=== PATIENT | male | born 1990 | race Caucasian/White ===

== ENCOUNTER 2025-01-24 08:48 | Observation (INO) ==
--- NOTE | 2025-01-24 09:23 | Emergency Department Note ---
Impression & Plan Acute right lumbar radiculopathy, Herniated lumbar intervertebral disc ED Provider Note NAME: VAISHALI SORIA AGE: 34 SEX: M : 1990 ARRIVES VIA: Walk-In INFORMANT: Patient, ED PROVIDER(S): Shaw Prince DO CHIEF COMPLAINT: Back pain HPI: The patient is a 34-year-old male who presented to the emergency department for an evaluation of low back pain. The patient has been seen in our facility recently for similar complaints. At that time he had radiographic studies but no obvious cause could be found. He was started on a course of steroids. He had follow-up set up with outpatient providers. The patient had worsening symptoms and call these providers. He was unable to be seen and they told him they could not see him until he had an MRI. The patient is requesting an MRI at this time. The patient denies having any saddle anesthesia. He complains of continued pain going down the right leg. He said no fever. ROS: See above HPI for pertinent positives & negatives. A total of 10 systems reviewed and were otherwise negative. PAST MEDICAL HISTORY: See Below PAST SURGICAL HISTORY: See Below FAMILY HISTORY: See Below SOCIAL HISTORY: See Below HOME MEDICATIONS: See Below ALLERGIES: See Below VITALS: See Below PHYSICAL EXAMINATION: GENERAL: The patient is awake and alert. He appears uncomfortable and anxious. EYES: The conjunctivae are clear. The pupils are round and reactive. EARS, NOSE, MOUTH AND THROAT: The nose is without any evidence of any deformity. NECK: The neck is nontender and supple. RESPIRATORY: Normal respiratory effort is noted there is no evidence of wheezing rhonchi or rales CARDIOVASCULAR: Regular rate and rhythm noted there no murmurs rubs or gallops normal S1 normal S2. GASTROINTESTINAL: The abdomen is soft. Abdomen is nontender. BACK: Lower lumbar tenderness was noted to palpation. Range of motion appears limited secondary to pain but there is no step-off. There is tenderness to palpation over the right sciatic notch. Straight leg raise is positive with the right leg. MUSCULOSKELETAL/EXTREMITIES: There is no evidence of gross deformity full range of motion is noted in the hips and shoulders. SKIN: There is no obvious evidence of any rash. There are no petechiae, pallor or cyanosis noted. NEUROLOGIC: Patient is awake alert and oriented x3 strength is symmetric patellar reflexes are 2+ bilaterally. Great toe raise is symmetric. Achilles tendon reflexes are 1+ bilaterally. MEDICAL DECISION MAKING: The patient is a 34-year-old male who presented to the emergency department for an evaluation of low back pain. The patient had radicular symptoms to his right leg. The patient's physical exam was very reassuring but given the degree of pain as well as his second trip back to emergency department I did feel the patient would be a good candidate for an MRI. I discussed patient's MRI with him. He was treated with pain medication as well as steroids in the emergency department. He was feeling much better on subsequent reevaluation but given his findings I discussed his condition with the on-call orthopedic spinal specialist. They are familiar with the patient and were able to review the patient's MRI. Given the patient's degree of pain though I felt the patient may be a better candidate for inpatient management so I discussed his condition with the on-call [facility] hospitalist as well. Triage Nursing notes reviewed. Prior medical records reviewed Vital Signs: reviewed and remarkable for no significant abnormalities Differential diagnosis: Musculoskeletal, disc herniation, fracture, metastatic disease, cord compression, discitis, sciatica, cauda equina, infection, aortic disease, renal colic, gastrointestinal, as well as other pathologies. ER treatment provided: See below Diagnostics interpreted by me: ECG: none Cardiac Monitoring: An order was placed for continuous cardiac monitoring. The monitor shows a rate of 77 bpm with sinus rhythm. Laboratory studies: As stated above and show below. Imaging studies: See below. Radiographic imaging was reviewed by myself Consultation(s): I discussed this case with Dr. Malave who is on-call for orthopedic spine. I discussed this case with Maritza who is on-call for the [facility] hospitalist group. Past Med/Surg History Problem List (Updated 01/24/25 @ 15:16 by Shaw Prince DO) Herniated lumbar intervertebral disc (Acute) Acute right lumbar radiculopathy (Acute) Herniation of intervertebral disc between L5 and S1 Acute lumbar radiculopathy (Acute) Low back pain radiating to right lower extremity History of lumbar laminectomy for spinal cord decompression L5-S1 Abdominal pain Melena Environmental and seasonal allergies S/P arthroscopy of right shoulder Encounter for pre-operative examination Labral tear of shoulder Medical History History of COVID-19 (2021) no hosp; resolved Hx of gastric ulcer ~2013 Blood in stool Environmental and seasonal allergies Nausea after anesthesia Surgical History History of arthroscopy of right shoulder repair labrum and bicep x2 S/P endoscopy Hx of colonoscopy Hx of wisdom tooth extraction History of ankle surgery lt. Family History Grandmother (Paternal) Breast cancer Grandfather (Maternal) History of open heart surgery Grandfather (Paternal) Kidney failure Mother Diabetes Father No problems noted. 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 [employer] How many Children do You have: 2 Feels Safe at Home: Yes Childhood Exposure to Second-Hand Smoke: No Diet: regular Dental Care, Regularly: Yes Physical Activity Frequency: 3-4 Times per Week Seatbelt Use: always Sunscreen Use: Yes Assistive Devices: None Allergies Allergies Allergy/AdvReac Type Severity Reaction Status Date / Time amoxicillin [From Augmentin] Allergy Mild Rash Verified 01/02/25 13:04 clavulanic acid Allergy Mild Rash Verified 01/02/25 13:04 [From Augmentin] gabapentin AdvReac Mild gave him Unverified 01/24/25 12:10 fever, body aches, and headache Home Meds Home Medications Medication Instructions Recorded Confirmed multivitamin 1 tab PO HS 03/17/22 01/24/25 cetirizine 10 mg tablet (Zyrtec) 10 mg PO HS 05/13/24 01/24/25 fluticasone propionate 50 1 spray intranasal HS PRN Other 05/13/24 01/24/25 mcg/actuation nasal spray,suspension dicyclomine 20 mg tablet 20 mg PO TID abdominal 01/24/25 01/24/25 craming/diarrhea Previous Rx's Medication Instructions Recorded oxycodone 5 mg tablet 5 mg PO Q6H PRN pain #15 tabs 01/22/25 prednisone 20 mg tablet 20 mg PO BID 7 days #14 tabs 01/22/25 Results & Data (ED) Vital Signs Vital Signs - 24 hr 01/24/25 08:54 01/24/25 09:22 01/24/25 09:45 Temperature 36.5 C Temperature Source Temporal Artery Scan Pulse Rate 76 74 Pulse Rate [Apical] 69 Pulse Rhythm Regular Pulse Rhythm [Apical] Pulse Strength [Apical] Respiratory Rate 20 21 19 Respiratory Effort / Characteristics Non-Labored Spontaneous Respiratory Depth Normal Respiratory Pattern Blood Pressure 161/103 H Blood Pressure [Right Arm] 191/102 H Blood Pressure Mean 122 Blood Pressure Mean [Right Arm] 131 Blood Pressure Position [Right Arm] Pulse Oximetry 98 96 96 Oxygen Delivery Method Room Air Room Air Sepsis Recent Fever Within 48 Hours No Sepsis New/Unexplained Change in Mental Status N/A Sepsis Action Taken by Nursing No Action Required 01/24/25 09:47 01/24/25 12:05 01/24/25 14:00 Temperature Temperature Source Pulse Rate 78 Pulse Rate [Apical] 71 84 Pulse Rhythm Pulse Rhythm [Apical] Regular Pulse Strength [Apical] Normal Respiratory Rate 15 17 Respiratory Effort / Characteristics Non-Labored Spontaneous Respiratory Depth Normal Respiratory Pattern Regular Blood Pressure Blood Pressure [Right Arm] 148/100 H 153/92 H Blood Pressure Mean Blood Pressure Mean [Right Arm] 116 112 Blood Pressure Position [Right Arm] Sitting Pulse Oximetry 96 95 Oxygen Delivery Method Room Air Room Air Sepsis Recent Fever Within 48 Hours Sepsis New/Unexplained Change in Mental Status Sepsis Action Taken by Nursing 01/24/25 14:44 Temperature Temperature Source Pulse Rate 77 Pulse Rate [Apical] Pulse Rhythm Pulse Rhythm [Apical] Pulse Strength [Apical] Respiratory Rate Respiratory Effort / Characteristics Respiratory Depth Respiratory Pattern Blood Pressure Blood Pressure [Right Arm] Blood Pressure Mean Blood Pressure Mean [Right Arm] Blood Pressure Position [Right Arm] Pulse Oximetry Oxygen Delivery Method Sepsis Recent Fever Within 48 Hours Sepsis New/Unexplained Change in Mental Status Sepsis Action Taken by Custodial Medications Current Medication List: was personally reviewed by me Laboratory Data Attestation: I reviewed the patient's lab results. 01/24/25 09:46 01/24/25 09:46 Lab Results 01/24/25 01/24/25 Range/Units 09:46 10:19 WBC 11.97 H (4.8-10.8) K/ul RBC 5.15 (4.70-6.10) M/uL Hgb 15.3 (14.0-18.0) g/dl Hct 46.1 (42.0-52.0) % MCV 89.5 (80.0-100.0) fL MCH 29.7 (25.0-34.0) pg MCHC 33.2 (32.0-36.0) g/dL RDW Std Deviation 39.5 (36.4-46.3) fL RDW Coeff of Blanka 12.0 (11.5-14.5) % Plt Count 295 (130-400) K/uL MPV 9.6 (9.4-12.4) fL Immature Gran % (Auto) 1.6 % Neut % (Auto) 56.4 % Lymph % (Auto) 33.2 % Worth % (Auto) 7.5 % Eos % (Auto) 0.8 % Baso % (Auto) 0.5 % Neut # (Auto) 6.75 H (1.40-6.50) K/uL Lymph # (Auto) 3.97 H (1.20-3.40) K/uL Worth # (Auto) 0.90 H (0.11-0.59) K/uL Eos # (Auto) 0.10 (0.00-0.50) K/uL Baso # (Auto) 0.06 (0.00-0.20) K/uL Immature Gran # (Auto) 0.19 (0.01-0.20) K/uL Sodium 140 (136-145) mmol/L Potassium 3.9 (3.5-5.1) mmol/L Chloride 105 (98-107) mmol/L Carbon Dioxide 30 (21-32) mmol/L Anion Gap 5 (3-11) BUN 17 (6-23) mg/dl Creatinine 1.08 (0.6-1.4) mg/dl Est Cr Clr Drug Dosing 148.0 ml/min eGFR 92.93 BUN/Creatinine Ratio 15.7 (10-20) Glucose 86 (70-99(Fasting)) mg/dl Calcium 9.4 (8.6-10.3) mg/dl Total Bilirubin 0.6 (0.2-1.0) mg/dl AST 13 (13-39) U/L ALT 29 (7-52) U/L Alkaline Phosphatase 54 (34-104) U/L Total Protein 7.4 (6.0-8.3) gm/dl Albumin 4.5 (3.4-5.0) gm/dl Globulin 2.9 (2.5-4.0) gm/dl Albumin/Globulin Ratio 1.6 (0.9-2) Urine Color Yellow Urine Appearance Cloudy A (Clear) Urine pH 7.0 (4.5-7.5) Ur Specific [place] 1.028 (1.000-1.030) Urine Protein Trace H (Negative) Urine Glucose (UA) Negative (Negative) Urine Ketones Trace H (Negative) Urine Blood Negative (Negative) Urine Nitrite Negative (Negative) Urine Bilirubin Negative (Negative) Urine Urobilinogen Negative (Negative) Ur Leukocyte Esterase Negative (Negative) Urine WBC (Auto) 0-5 (0-5) /hpf Urine RBC (Auto) 3-5 H (0-2) /hpf U Hyaline Cast (Auto) 0-2 (0-2) /lpf U Epithel Cells (Auto) 0-2 (0-2) /hpf Urine Bacteria (Auto) None Seen (None Seen) Urine Comment Administered Medications Morphine Sulfate (Morphine Sulfate 4 Mg/Ml 1 Ml Carp\Vial) 4 mg IV Q15M PRN PRN Reason: Pain Stop: 02/07/25 09:12 Last Admin: 01/24/25 13:16 Dose: 4 mg Documented By: Admin: 01/24/25 09:46 Dose: 4 mg Documented By: DAYANNA Discontinued Medications Dexamethasone Sodium Phosphate (DexamethasonePf 10 Mg/Ml Vial) 10 mg IV NOW ONE Stop: 01/24/25 09:14 Last Admin: 01/24/25 09:46 Dose: 10 mg Documented By: DAYANNA Ketorolac Tromethamine (Ketorolac Tromethamine 15 Mg/Ml Vial) 10 mg IV ONE STA Stop: 01/24/25 09:14 Last Admin: 01/24/25 09:46 Dose: 10 mg Documented By: DAYANNA Ondansetron HCl (Ondansetron Inj 2 Mg/Ml 2 Ml Vial) 4 mg IV NOW STA Stop: 01/24/25 09:14 Last Admin: 01/24/25 09:46 Dose: 4 mg Documented By: DAYANNA Ondansetron HCl (Ondansetron Inj 2 Mg/Ml 2 Ml Vial) 4 mg IV NOW STA Stop: 01/24/25 13:04 Last Admin: 01/24/25 13:17 Dose: 4 mg Documented By: DAYANNA Imaging Data Attestation: I personally reviewed and interpreted this imaging study as follows: My Impression: MRI of the lumbar spine was obtained. My interpretation is herniated disc at the L5-S1, final report below. Radiologist's Impression: Lumbar Spine MRI 01/24/25 09:13 MR lumbar spine wo con CLINICAL HISTORY: 34 years-old Male with right sided radicular SS. Acute low back pain with right lower extremity radicular symptoms COMPARISON: Radiographs dated 01/22/2025 TECHNIQUE: Multiplanar, multi sequence MRI of the lumbar spine was performed without intravenous contrast. FINDINGS: The lumbar alignment is normal. The vertebral body heights are normal. There is no T1 fracture line or marrow replacement process. The conus terminates at L1. The visualized spinal cord and cauda equina are normal. There is no paraspinal edema, mass, or prevertebral fluid collection. The intra-abdominal structures are grossly unremarkable. There is mild multilevel spondylitic spurring. Mild multilevel intervertebral disc space narrowing. Small annular disc bulging noted within the lower thoracic spine. T12-L1: No central canal or neural foraminal stenosis. L1-L2: Small posterior annular disc bulge, eccentric to the right neural foramen. No central canal or neural foraminal stenosis. L2-L3: No central canal or neural foraminal stenosis. L3-L4: No central canal or neural foraminal stenosis. L4-L5: 9 x 3 mm central disc protrusion, image 22 series 5. No central canal or neural foraminal stenosis. L5-S1: Mild intervertebral disc space narrowing and spondylotic spurring with small circumferential annular disc bulge. There is a posterior annular fissure with a large disc extrusion on image 28 series 5 measuring 2.5 x 0.7 cm with 5 mm caudal migration, image 9 series 2. This involves the central/right paracentral space, and right neural foramen. This abuts and posteriorly displaces the right S1 nerve root causing severe right lateral recess narrowing. Central canal and left neural foramen are patent. [id number] right neural foraminal narrowing. IMPRESSION: 1. Posterior annular fissure with large disc extrusion at L5-S1 abuts and posteriorly displaces the right S1 nerve root causing severe right lateral recess and [id number] right-sided neural foraminal narrowing at this level. 2. No additional significant central canal or neural foraminal stenosis. 3. No acute fracture or bone marrow edema. ACT 112: Negative or not required by law. The above report was generated using voice recognition software. It may contain grammatical, syntax or spelling errors. Electronically signed by: Fidel Aguilar M.D. 01/24/2025 11:47 AM Discharge Plan Visit Data Chief Complaint: Back Injury/Pain Stated Complaint: BACK PAIN ED Provider: Shaw Prince Discharge Problem: Acute right lumbar radiculopathy, Herniated lumbar intervertebral disc Patient Disposition: Being Evaluated by Hospitalist Condition: Fair Forms Stand Alone Forms: [facility] Prescriptions Prescriptions: No Action multivitamin Tablet 1 tab PO HS prednisone 20 mg tablet 20 mg PO BID 7 Days Qty: 14 0RF oxycodone 5 mg tablet 5 mg PO Q6H PRN (Reason: pain) Qty: 15 0RF dicyclomine 20 mg tablet 20 mg PO TID cetirizine [Zyrtec] 10 mg Tablet 10 mg PO HS fluticasone propionate 50 mcg/actuation [place],Suspension 1 spray INTRANASAL HS PRN (Reason: Other) Rx Instructions: administer into each nostril Referrals Referrals: Rosemarie Vinson CRNP [Primary Care Provider] -
[2025-01-24] MEDS: ONDANSETRON INJ 2 MG/ML 2 ML VIAL IV STA ×2 (09:46→13:17)
[2025-01-24] MEDS: KETOROLAC TROMETHAMINE 15 MG/ML VIAL IV STA (09:46)
[2025-01-24] MEDS: dexAMETHasone**PF** 10 MG/ML VIAL IV ONE (09:46)
[2025-01-24] MEDS: MoRPHine SULFATE 4 MG/ML 1 ML CARP\\VIAL IV PRN (09:46)
[2025-01-24 09:55] LABS: Hematocrit (blood only) 46.1 % (42.0-52.0); Hemoglobin 15.3 g/dl (14.0-18.0); Immature Granulocytes # (auto) 0.19 K/uL (0.01-0.20); Immature Granulocytes % (auto) 1.6 %; Mean Corpuscular Hemoglobin 29.7 pg (25.0-34.0); Mean Corpuscular Volume 89.5 fL (80.0-100.0); Platelet Count 295 K/uL (130-400); RDW Standard Deviation 39.5 fL (36.4-46.3); Red Blood Count 5.15 M/uL (4.70-6.10); White Blood Count 11.97 K/ul (4.8-10.8)
[2025-01-24 10:11] LABS: Alanine Aminotransferase 29.0 U/L (7-52); Albumin Globulin Ratio 1.6 (0.9-2); Alkaline Phosphatase 54.0 U/L (34-104); Anion Gap 5.0 (3-11); Bilirubin,Total 0.6 mg/dl (0.2-1.0); Blood Urea Nitrogen 17.0 mg/dl (6-23); Calcium 9.4 mg/dl (8.6-10.3); Carbon Dioxide 30.0 mmol/L (21-32); Chloride 105.0 mmol/L (98-107); Creatinine Clr Calc Pharmacy 148.0 ml/min; Globulin 2.9 gm/dl (2.5-4.0); Glucose 86.0 mg/dl (70-99(Fasting)); Potassium 3.9 mmol/L (3.5-5.1); Sodium 140.0 mmol/L (136-145); Total Protein 7.4 gm/dl (6.0-8.3)
[2025-01-24 10:40] LABS: Appearance Urine Cloudy (Clear); Bacteria Urine Automated None Seen (None Seen); Cast Urine Automated 0-2 /lpf (0-2); Epithelial Cell Urine Auto 0-2 /hpf (0-2); Glucose Urine UA Negative (Negative); WBC Urine Automated 0-5 /hpf (0-5)
--- NOTE | 2025-01-24 11:48 | Magnetic Resonance Report ---
MR lumbar spine wo con CLINICAL HISTORY: 34 years-old Male with right sided radicular SS. Acute low back pain with right lo wer extremity radicular symptoms COMPARISON: Radiographs dated 01/22/2025 TECHNIQUE: Multiplanar, multi sequence MRI of the lumbar spine was performed without intravenous cont rast. FINDINGS: The lumbar alignment is normal. The vertebral body heights are normal. There is no T1 fracture line or marrow replacement process. The conus terminates at L1. The visualized spinal cord and cauda eq uina are normal. There is no paraspinal edema, mass, or prevertebral fluid collection. The intra-ab dominal structures are grossly unremarkable. There is mild multilevel spondylitic spurring. Mild mult ilevel intervertebral disc space narrowing. Small annular disc bulging noted within the lower thoraci c spine. T12-L1: No central canal or neural foraminal stenosis. L1-L2: Small posterior annular disc bulge, eccentric to the right neural foramen. No central canal o r neural foraminal stenosis. L2-L3: No central canal or neural foraminal stenosis. L3-L4: No central canal or neural foraminal stenosis. L4-L5: 9 x 3 mm central disc protrusion, image 22 series 5. No central canal or neural foraminal carline nosis. L5-S1: Mild intervertebral disc space narrowing and spondylotic spurring with small circumferential annular disc bulge. There is a posterior annular fissure with a large disc extrusion on image 28 seri es 5 measuring 2.5 x 0.7 cm with 5 mm caudal migration, image 9 series 2. This involves the central/r ight paracentral space, and right neural foramen. This abuts and posteriorly displaces the right S1 n erve root causing severe right lateral recess narrowing. Central canal and left neural foramen are pa tent. [id number] right neural foraminal narrowing. IMPRESSION: 1. Posterior annular fissure with large disc extrusion at L5-S1 abuts and posteriorly displaces the r ight S1 nerve root causing severe right lateral recess and [id number] right-sided neural forami nal narrowing at this level. 2. No additional significant central canal or neural foraminal stenosis. 3. No acute fracture or bone marrow edema. ACT 112: Negative or not required by law. The above report was generated using voice recognition software. It may contain grammatical, syntax o r spelling errors. Electronically signed by: Fidel Aguilar M.D. 01/24/2025 11:47 AM
--- NOTE | 2025-01-24 13:28 | History & Physical Report ---
Date of Service January 24, 2025 Assessment & Plan (1) Acute lumbar radiculopathy: (2) Herniation of intervertebral disc between L5 and S1: Plan This is a 34 year old gentleman with past medical history of abdominal pain who presented to the ED on 01/24/2025 secondary to low back pain. While in the ED, he had a lumbar spine MRI that did reveal a large L5-S1 disc extrusion that posteriorly displaces the right S1 nerve root causing severe right lateral recess & mild-moderate right sided neural foraminal narrowing. He did have a recent lumbar spine XR that was negative. Urinalysis negative for infection. CBC w/ mild leukocytosis of 11.97 which is likely secondary to recent steroid use. BMP w/ stable renal function & electrolytes. In the ED he did have 10mg IV dexamethasone, 4mg IV morphine x2, IV Zofran, & IV Toradol. #Acute lumbar radiculopathy Lumbar spine MRI: posterior annular fissure w/ large disc extrusion @ L5-S1 abuts & posteriorly displaces right S1 nerve root causing severe right lateral recess & mild-moderate right sided neural foraminal narrowing. no additional significant central canal/neural foraminal stenosis; no acute fx or BM edema. Lumbar spine XR: negative. CBC w/ mild leukocytosis of 11.97 which is likely secondary to recent steroid use. No infectious symptoms BMP stable Dexamethasone 6mg IV daily starting 01/25. Pain regimen: Tylenol 1000mg PO scheduled; Toradol 1st line prn; Morphine 2nd line prn; Flexeril TID prn for muscle spasms. Ortho spine consulted - appreciate recommendations Pain management consulted - appreciate recommendations PT/OT consulted - appreciate recommendations. #Abdominal pain -Bentyl TID #Allergies - Cetirizine, Flonase prn. Code: full DVT prophylaxis: encourage ambulation as able, SCD's Case discussed w/ Dr. Kelly at time of admission. History of Present Illness Primary Care Provider: YVONNE Mei This is a 34 year old gentleman with past medical history of abdominal pain who presented to the ED on 01/24/2025 secondary to low back pain. Mo was seen and examined with his mother at bedside. He reports he has been having ongoing low back pain for about 2 months now. States that he was given a 2 week steroid taper in which the first week his symptoms improved. As the steroid dose started to decrease, his pain returned. He was trialed on gabapentin but reports he had adverse effects to this & it was not effective for his pain. He states that within the last few days to a week his pain has gotten worse. He denies any saddle anesthesia, or loss of bowel/bladder incontinence. He states he did have trouble urinating overnight which was not normal for him. He denied any dysuria or increased frequency. He does report some numbness/tingling in his right ankle/foot region. States that this became more prominent yesterday evening. He states his back pain radiates down his right leg. He denies any CP, SOB, abdominal pain, nausea or vomiting. He does report that 11 years ago he had a spinal injection due to similar symptoms & this was very effective for him. States he would be agreeable to another injection if needed & he would like to avoid surgery as much as possible. While in the ED, he had a lumbar spine MRI that did reveal a large L5-S1 disc extrusion that posteriorly displaces the right S1 nerve root causing severe right lateral recess & mild-moderate right sided neural foraminal narrowing. He did have a recent lumbar spine XR that was negative. Urinalysis negative for infection. CBC w/ mild leukocytosis of 11.97 which is likely secondary to recent steroid use. BMP w/ stable renal function & electrolytes. Allergies Allergy/AdvReac Type Severity Reaction Status Date / Time amoxicillin [From Augmentin] Allergy Mild Rash Verified 01/02/25 13:04 clavulanic acid Allergy Mild Rash Verified 01/02/25 13:04 [From Augmentin] gabapentin AdvReac Mild gave him Unverified 01/24/25 12:10 fever, body aches, and headache Home Medications Medication Instructions Recorded Confirmed Type multivitamin 1 tab PO HS 03/17/22 01/24/25 History cetirizine 10 mg tablet (Zyrtec) 10 mg PO HS 05/13/24 01/24/25 History fluticasone propionate 50 1 spray intranasal HS PRN Other 05/13/24 01/24/25 History mcg/actuation nasal spray,suspension oxycodone 5 mg tablet 5 mg PO Q6H PRN pain #15 tabs 01/22/25 01/24/25 Rx prednisone 20 mg tablet 20 mg PO BID 7 days #14 tabs 01/22/25 01/24/25 Rx dicyclomine 20 mg tablet 20 mg PO TID abdominal 01/24/25 01/24/25 History craming/diarrhea Past Med/Surg History Problem List (Updated 01/24/25 @ 13:55 by Jeri Lancaster PA-C) Herniation of intervertebral disc between L5 and S1 Acute lumbar radiculopathy (Acute) Low back pain radiating to right lower extremity History of lumbar laminectomy for spinal cord decompression L5-S1 Abdominal pain Melena Environmental and seasonal allergies S/P arthroscopy of right shoulder Encounter for pre-operative examination Labral tear of shoulder Medical History History of COVID-19 (2021) no hosp; resolved Hx of gastric ulcer ~2013 Blood in stool Environmental and seasonal allergies Nausea after anesthesia Surgical History History of arthroscopy of right shoulder repair labrum and bicep x2 S/P endoscopy Hx of colonoscopy Hx of wisdom tooth extraction History of ankle surgery lt. Family History Grandmother (Paternal) Breast cancer Grandfather (Maternal) History of open heart surgery Grandfather (Paternal) Kidney failure Mother Diabetes Father No problems noted. 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 [employer] How many Children do You have: 2 Feels Safe at Home: Yes Childhood Exposure to Second-Hand Smoke: No Diet: regular Dental Care, Regularly: Yes Physical Activity Frequency: 3-4 Times per Week Seatbelt Use: always Sunscreen Use: Yes Assistive Devices: None Physical Exam Constitutional: WD/WN, vitals as above Eyes: PERRL, conjunctivae normal, anicteric sclerae Respiratory: normal respiratory effort, lungs clear to auscultation Cardiovascular: RRR, no murmur, no edema Gastrointestinal (Abdomen): normal bowel sounds, soft, nontender, no hepatosplenomegaly Musculoskeletal: no cyanosis or clubbing, extremities motor strength 5/5 pain w/ lifting right leg but able to. sensation intact b/l LE Neurologic: PERRL, EOMI, accommodation nl, no face palsy, no dysarthria Psychiatric: A+Ox3, euthymic affect Results & Data Results & Data Vital Signs (Past 12 Hours) Vital Signs Temp Pulse Pulse Resp BP BP Pulse Ox 01/24/25 12:05 71 15 148/100 H 96 01/24/25 09:47 78 01/24/25 09:45 74 19 96 01/24/25 09:22 69 21 191/102 H 96 01/24/25 08:54 36.5 C 76 20 161/103 H 98 O2 Del Method 01/24/25 12:05 Room Air 01/24/25 09:47 01/24/25 09:45 Room Air 01/24/25 09:22 01/24/25 08:54 Room Air Supervising Physician Co-Signing Physician Notes The patient was seen by me. The chart was reviewed. Case discussed with ANAI Krause. Agree with assessment and plan PG Care Time/CCT Total # of Minutes Spent Total Time Spent with Patient: Total time spent is greater than 50% in coordination of care (as documented) at patient's floor/unit and/or counseling patient: Coding Level of Care Code 01454 INT INP/OBS CARE 2/55MIN Diagnoses Acute lumbar radiculopathy M54.16 Herniation of intervertebral disc between L5 and S1 M51.27
[2025-01-24] MEDS ORDERED: CYCLOBENZAPRINE HCL 10 MG TAB PO PRN (15:56)
[2025-01-24] MEDS ORDERED: ONDANSETRON INJ 2 MG/ML 2 ML VIAL IV PRN (15:56)
[2025-01-24] MEDS ORDERED: MoRPHine SULFATE 2 MG/ML CARP IV PRN (15:56)
[2025-01-24] MEDS ORDERED: FLUTICASONE PROPIONATE NA SPR 16 GM BTL NAE PRN (15:56)
[2025-01-24] MEDS: ACETAMINOPHEN 500 MG TAB PO SCH (16:13)
[2025-01-24] MEDS: DICYCLOMINE HCL 20 MG TAB PO SCH (17:21)
[2025-01-24] MEDS: KETOROLAC TROMETHAMINE 15 MG/ML VIAL IV PRN (18:03)
[2025-01-24] MEDS: REMOVE LIDODERM PATCH SCH (20:31)
[2025-01-24] MEDS: MULTIVITAMIN TAB PO SCH (20:32)
[2025-01-24] MEDS: CETIRIZINE HCL 10 MG TABLET PO SCH (20:32)
[2025-01-24 23:11] VITALS: RESP 18; TEMP 97.9
[2025-01-25 06:30] LABS: Hematocrit (blood only) 44.4 % (42.0-52.0); Hemoglobin 14.7 g/dl (14.0-18.0); Mean Corpuscular Hemoglobin 29.9 pg (25.0-34.0); Mean Corpuscular Volume 90.2 fL (80.0-100.0); Platelet Count 268 K/uL (130-400); RDW Standard Deviation 38.6 fL (36.4-46.3); Red Blood Count 4.92 M/uL (4.70-6.10); White Blood Count 11.99 K/ul (4.8-10.8)
[2025-01-25 06:54] LABS: Anion Gap 6.0 (3-11); Blood Urea Nitrogen 23.0 mg/dl (6-23); Calcium 9.3 mg/dl (8.6-10.3); Carbon Dioxide 28.0 mmol/L (21-32); Chloride 104.0 mmol/L (98-107); Creatinine Clr Calc Pharmacy 148.0 ml/min; Glucose 90.0 mg/dl (70-99(Fasting)); Potassium 4.5 mmol/L (3.5-5.1); Sodium 138.0 mmol/L (136-145)
[2025-01-25 07:14] VITALS: BP 143/84; PULSE 60; O2SAT 99
[2025-01-25] MEDS: LIDOCAINE 5% 1 PATCH TD PRN (08:00)
[2025-01-25] MEDS: dexAMETHasone 6 MG in SYRINGE 0 ML IV SCH (08:02)
--- NOTE | 2025-01-25 09:10 | Pain Management Consultation ---
Date of Consultation January 25, 2025 Assessment & Plan (1) Acute lumbar radiculopathy: (2) Herniation of intervertebral disc between L5 and S1: (3) Low back pain radiating to right lower extremity: Plan 1. Recommend L5-S1 interlaminar epidural steroid injection. Risk versus benefits discussed with patient. He wishes to proceed. He will schedule soon as possible as an outpatient. 2. Continue with Lidoderm patch and ice as tolerated 3. Will plan on performing injection in the outpatient clinic pending insurance approval. Patient is aware that he may be discharged with follow-up in the clinic for injection. 4. Follow-up in the outpatient clinic per protocol and as needed after injection. Case discussed with Dr. Hurtado History of Present Illness Reason for Consultation: Low back pain with radiculopathy Attending Physician: Kuldip Schofield History of Present Illness Attending: Dr. Hurtado Mr. Soria is a 34-year-old male who presents with back pain that started approximately 3 months ago. It progressed approximately 3 weeks ago and patient was seen by orthospine who prescribed a steroid taper. Patient had some improvement with that but pain returned. He presented the emergency department on Thursday with acute pain and difficulty with ambulation. He reports he has constant pain in the lumbosacral area right worse than left with pain and tingling down into the right foot in an L5-S1 distribution pattern. Occasional radiation into the left lateral thigh. Patient reports that he has tried muscle relaxants and oxycodone with minimal improvement in his pain. He currently is getting IV dexamethasone and continues to have difficulty with pain. Patient reports he has similar incident 12 years ago and had "a shot in the back" and had sustained relief until this time. He reports the pain is aggravated by standing, walking, prolonged sitting. Pain is alleviated with rest and lying supine. Patient was placed on gabapentin and had excessive daytime drowsiness and brain fog after 2 doses and medication was discontinued. Patient has not tried pregabalin (Lyrica), duloxetine (Cymbalta). Patient is able to ambulate about his room to use the restroom but reports pain. He denies any foot drop, stumbling, falls. Patient reports pain at worst 7-8/10 and at best 5/10. Patient has seen orthospine and is established with them as an outpatient Lumbar spine MRI 01/24/2025 Lumbar spine x-ray 01/22/2025 Physical therapy and Occupational Therapy consults have been placed but patient has not been seen yet Previous intervention: Physical therapy, muscle relaxants, opiates, steroid taper orally, IV steroids, NSAIDs, Tylenol, repositioning, rest Patient denies any bowel or bladder incontinence. No saddle anesthesia. He has no unusual bleeding or bruising. He has no history of malignancy. He is unaware of any blood dyscrasias. He is not on anticoagulants or antiplatelet agents. Patient has no other constitutional complaints. Allergies Allergy/AdvReac Type Severity Reaction Status Date / Time amoxicillin [From Augmentin] Allergy Mild Rash Verified 01/02/25 13:04 clavulanic acid Allergy Mild Rash Verified 01/02/25 13:04 [From Augmentin] gabapentin AdvReac Mild gave him Unverified 01/24/25 12:10 fever, body aches, and headache Home Medications Medication Instructions Recorded Confirmed Type multivitamin 1 tab PO HS 03/17/22 01/24/25 History cetirizine 10 mg tablet (Zyrtec) 10 mg PO HS 05/13/24 01/24/25 History fluticasone propionate 50 1 spray intranasal HS PRN Other 05/13/24 01/24/25 History mcg/actuation nasal spray,suspension oxycodone 5 mg tablet 5 mg PO Q6H PRN pain #15 tabs 01/22/25 01/24/25 Rx prednisone 20 mg tablet 20 mg PO BID 7 days #14 tabs 01/22/25 01/24/25 Rx dicyclomine 20 mg tablet 20 mg PO TID abdominal 01/24/25 01/24/25 History craming/diarrhea Pain History Previous Imaging and Results Labs: 01/25/25 06:03 01/25/25 06:03 Imaging: Lumbar Spine MRI 01/24/25 09:13 MR lumbar spine wo con CLINICAL HISTORY: 34 years-old Male with right sided radicular SS. Acute low back pain with right lower extremity radicular symptoms COMPARISON: Radiographs dated 01/22/2025 TECHNIQUE: Multiplanar, multi sequence MRI of the lumbar spine was performed without intravenous contrast. FINDINGS: The lumbar alignment is normal. The vertebral body heights are normal. There is no T1 fracture line or marrow replacement process. The conus terminates at L1. The visualized spinal cord and cauda equina are normal. There is no paraspinal edema, mass, or prevertebral fluid collection. The intra-abdominal structures are grossly unremarkable. There is mild multilevel spondylitic spurring. Mild multilevel intervertebral disc space narrowing. Small annular disc bulging noted within the lower thoracic spine. T12-L1: No central canal or neural foraminal stenosis. L1-L2: Small posterior annular disc bulge, eccentric to the right neural foramen. No central canal or neural foraminal stenosis. L2-L3: No central canal or neural foraminal stenosis. L3-L4: No central canal or neural foraminal stenosis. L4-L5: 9 x 3 mm central disc protrusion, image 22 series 5. No central canal or neural foraminal stenosis. L5-S1: Mild intervertebral disc space narrowing and spondylotic spurring with small circumferential annular disc bulge. There is a posterior annular fissure with a large disc extrusion on image 28 series 5 measuring 2.5 x 0.7 cm with 5 mm caudal migration, image 9 series 2. This involves the central/right paracentral space, and right neural foramen. This abuts and posteriorly displaces the right S1 nerve root causing severe right lateral recess narrowing. Central canal and left neural foramen are patent. [id number] right neural foraminal narrowing. IMPRESSION: 1. Posterior annular fissure with large disc extrusion at L5-S1 abuts and posteriorly displaces the right S1 nerve root causing severe right lateral recess and [id number] right-sided neural foraminal narrowing at this level. 2. No additional significant central canal or neural foraminal stenosis. 3. No acute fracture or bone marrow edema. ACT 112: Negative or not required by law. The above report was generated using voice recognition software. It may contain grammatical, syntax or spelling errors. Electronically signed by: Fidel Aguilar M.D. 01/24/2025 11:47 AM XRay Report Patient: VAISHALI SORIA Admit Date: 01/22/25 MR#: [id number] Address[address]: [address] [facility] Acct ID:[id number] Address2: Date: 1990 [facility] Zip: [place] [address] Age: 34 Location: ED Sex: M Room/Bed: Att Phy: Diagnosis: BACK PAIN Sharon Phy: Rosemarie Vinson CRNP Service Date: 01/22/25 [facility] Phy: Interpreting Phy: Bert Rahman MDAdmit Phy: Ordering Phy: Shaw Prince DO cc: ~ LUMBAR SPINE 5 VIEWS CLINICAL HISTORY: Atraumatic low back pain. FINDINGS: 5 views of the lumbar spine are compared to study dated 01/02/2025. The skeletal structures are well mineralized. There is no radiographic evidence of fracture or malalignment. Vertebral body height and alignment are maintained. Tiny anterior osteophytes are seen throughout. The transverse and spinous processes are intact. There is no radiographic evidence of spondylolysis. There is minimal disc space narrowing at L5-S1. The remaining spaces are maintained. The visualized bony pelvis appears intact. There is a nonobstructed abdominal bowel gas pattern. IMPRESSION: No acute bony abnormality is seen involving the lumbar spine. ACT 112: Negative or not required by law. Electronically signed by: Bert Rahman M.D. 01/22/2025 9:38 AM Patient History Medical History History of COVID-19 (2021) no hosp; resolved Hx of gastric ulcer ~2013 Blood in stool Environmental and seasonal allergies Nausea after anesthesia Surgical History History of arthroscopy of right shoulder repair labrum and bicep x2 S/P endoscopy Hx of colonoscopy Hx of wisdom tooth extraction History of ankle surgery lt. Family History Grandmother (Paternal) Breast cancer Grandfather (Maternal) History of open heart surgery Grandfather (Paternal) Kidney failure Mother Diabetes Father No problems noted. 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 Memory appears grossly intact, resting comfortably on examination Skin: No evidence of edema, erythema or skin breakdown. No rashes, lesions, ulcers, or induration noted. Musculoskeletal: Head is normocephalic and atraumatic, gait abnormal secondary to pain. Lumbar: Lordotic curve: No loss of lumbar Lordosis Range of motion is decreased with extension and flexion Tenderness: Nontender over the axial midline Facet provocation: Negative bilaterally Straight leg raise: Positive on the right and equivocal on the left Strength: Strength is equal bilaterally with 5 out of 5 strength in all planes Sensation of lower extremities: Intact bilaterally Deep tendon reflexes: Rated at 2/4 in bilateral patellar tendons Myofascial spasm: No appreciable lumbar spasm. No discrete trigger points noted Greater trochanters: Nontender bilaterally Sacroiliac joints: Nontender bilaterally. Negative Gaenslen's test bilaterally. Negative FADIR. Negative BERONICA. Negative compression test. No appreciable leg length discrepancy Pathologic reflexes noted: None Neuro: No focal neurological deficits appreciated. Results (Pain Clinic) Previous Records Review Previous Records: personally reviewed by me
--- NOTE | 2025-01-25 11:33 | Discharge Summary ---
Discharge Summary Date of Service January 25, 2025 Principal Dx & Hospital Course #1 = Principal Diagnosis (1) Acute lumbar radiculopathy: (2) Herniation of intervertebral disc between L5 and S1: Plan This is a 34 year old gentleman with past medical history of abdominal pain who presented to the ED on 01/24/2025 secondary to low back pain. While in the ED, he had a lumbar spine MRI that did reveal a large L5-S1 disc extrusion that posteriorly displaces the right S1 nerve root causing severe right lateral recess & mild-moderate right sided neural foraminal narrowing. He did have a recent lumbar spine XR that was negative. Urinalysis negative for infection. CBC w/ mild leukocytosis of 11.97 which is likely secondary to recent steroid use. BMP w/ stable renal function & electrolytes. In the ED he did have 10mg IV dexamethasone, 4mg IV morphine x2, IV Zofran, & IV Toradol. #Acute lumbar radiculopathy Lumbar spine MRI: posterior annular fissure w/ large disc extrusion @ L5-S1 abuts & posteriorly displaces right S1 nerve root causing severe right lateral recess & mild-moderate right sided neural foraminal narrowing. no additional significant central canal/neural foraminal stenosis; no acute fx or BM edema. Lumbar spine XR: negative. CBC w/ mild leukocytosis of 11.99 which is likely secondary to recent steroid use. No infectious symptoms BMP stable s/p IV dexamethasone --> given no improvement discussed w/ pain management to defer on discharge. Pain regimen: Tylenol 1000mg PO scheduled; ibuprofen prn for breakthrough pain + Lidocaine patch. Pain management consulted - to get injection tomorrow, 01/26 @ 8am. #Abdominal pain -Bentyl TID #Allergies - Cetirizine, Flonase prn. Updated family at bedside 01/25 discussed w/ pain management [place] 01/25. Admission HPI Per Admitting Provider This is a 34 year old gentleman with past medical history of abdominal pain who presented to the ED on 01/24/2025 secondary to low back pain. Mo was seen and examined with his mother at bedside. He reports he has been having ongoing low back pain for about 2 months now. States that he was given a 2 week steroid taper in which the first week his symptoms improved. As the steroid dose started to decrease, his pain returned. He was trialed on gabapentin but reports he had adverse effects to this & it was not effective for his pain. He states that within the last few days to a week his pain has gotten worse. He denies any saddle anesthesia, or loss of bowel/bladder incontinence. He states he did have trouble urinating overnight which was not normal for him. He denied any dysuria or increased frequency. He does report some numb ness/tingling in his right ankle/foot region. States that this became more prominent yesterday evening. He states his back pain radiates down his right leg. He denies any CP, SOB, abdominal pain, nausea or vomiting. He does report that 11 years ago he had a spinal injection due to similar symptoms & this was very effective for him. States he would be agreeable to another injection if needed & he would like to avoid surgery as much as possible. While in the ED, he had a lumbar spine MRI that did reveal a large L5-S1 disc extrusion that posteriorly displaces the right S1 nerve root causing severe right lateral recess & mild-moderate right sided neural foraminal narrowing. He did have a recent lumbar spine XR that was negative. Urinalysis negative for infection. CBC w/ mild leukocytosis of 11.97 which is likely secondary to recent steroid use. BMP w/ stable renal function & electrolytes. Discharge Exam Constitutional WD/WN, vitals as above Respiratory normal respiratory effort Neurologic PERRL, EOMI, accommodation nl, no face palsy, no dysarthria Psychiatric A+Ox3, euthymic affect Discharge Plan Discharge Items Patient Disposition: Home - Self-Care Reason For Visit: BACK PAIN Discharge Diagnosis: L5-S1 disc herniation Condition on Discharge: Fair Activity: Per Instructions section Activity Comment: per pain management instructions after injection Non-emergency contact: Primary Care Provider, Surgeon and Pain Management Call non-emergency contact if: you have any medication questions, your symptoms worsen and your pain is not controlled Follow-up/Referrals: Leo Prather MD, FIPP [Physician] - 01/26/25 7:45 am Rosemarie Vinson CRNP [Primary Care Provider] - Robbin Malave MD [Surgeon] - Diet: Regular Addtl Attending Provider Instructions: Mr. Hernandez, You were recently hospitalized for intractable low back pain. You were treated with IV pain medication, IV steroids and had some improvement. You were evaluated by pain management who has an injection set up for you tomorrow morning. Please see recommendations below regarding your discharge. Please continue taking Tylenol 1000mg every 8 hours for pain. Please use Ibuprofen 800mg tablet every 8 hours as needed for pain. You may use a Lidocaine patch 12 hours on 12 hours off for pain. Your injection is set up for tomorrow at 8am with pain management. Please follow up with your PCP within 1-2 weeks of discharge. Best of luck! Jeri Lancaster PA-C Pending Studies at Discharge: No Stand-Alone Forms: My [facility] PAAY, Smoking Cessation Medications and DC Order Prescriptions: New acetaminophen [Tylenol Extra Strength] 500 mg Tablet 1,000 mg PO TID Qty: 3 0RF lidocaine 5 % Adhesive Patch,Medicated 1 patch transdermal DAILY PRN (Reason: low back pain) Qty: 15 0RF ibuprofen 800 mg tablet 800 mg PO Q8H PRN (Reason: pain) Qty: 30 0RF Continued multivitamin Tablet 1 tab PO HS oxycodone 5 mg tablet 5 mg PO Q6H PRN (Reason: pain) Qty: 15 0RF dicyclomine 20 mg tablet 20 mg PO TID cetirizine [Zyrtec] 10 mg Tablet 10 mg PO HS fluticasone propionate 50 mcg/actuation Blair,Suspension 1 spray INTRANASAL HS PRN (Reason: Other) Rx Instructions: administer into each nostril Discontinued prednisone 20 mg tablet 20 mg PO BID 7 Days Qty: 14 0RF Discharge Orders: Discharge Order (Routine); Ordered 01/25/25 Ordered By: Jeri Bennett/Other Patient Handouts: Common Spine and Disk Problems, ED Herniated Intervertebral Disk Admission Data Admit Date/Time: 01/24/25 13:22 Attending Provider: Kuldip Schofield Admit Provider: Jayme Kelly Primary Care Provider: Rosemarie Vinson Other Providers: Jayme Kelly; Robbin Malave; Billy Hawkins; Sharmila Hurtado; Leo Prather; Bert Alan; Anai Soto Other Interventions: Discharge Summary Assessment (RN) Last Done: 01/25/25 12:42 Hospital Stay Data Consultations 01/24/25 13:20 ED Decision to Admit Stat 01/24/25 15:56 Consult Orthopedic Spine Surgery Routine Consult Pain Management Routine Diagnostic Imagining Performed 01/24/25 09:13 MR lumbar spine wo con Stat Pending Results Patient Have Any Pending Studies at Discharge: No Discharge Instructions Given to Patient (Per Discharging Provider) Mr. Hernandez, You were recently hospitalized for intractable low back pain. You were treated with IV pain medication, IV steroids and had some improvement. You were evaluated by pain management who has an injection set up for you tomorrow morning. Please see recommendations below regarding your discharge. Please continue taking Tylenol 1000mg every 8 hours for pain. Please use Ibuprofen 800mg tablet every 8 hours as needed for pain. You may use a Lidocaine patch 12 hours on 12 hours off for pain. Your injection is set up for tomorrow at 8am with pain management. Please follow up with your PCP within 1-2 weeks of discharge. Best of luck! Jeri Lancaster PA-C Total Time Total Time Spent Total Time Spent (In Minutes): 50 Total Time Includes: Examination of the Patient, Discharge Planning, Medication Reconciliation and Communication With Other Providers Coding Level of Care Code 51787 INP/OBS DISCH >30 MIN Diagnoses Acute lumbar radiculopathy M54.16 Herniation of intervertebral disc between L5 and S1 M51.27
--- NOTE | 2025-01-26 12:26 | Orthopedic Consultation ---
Date of Service January 26, 2025 History of Present Illness Reason for Consultation: Lumbar disc herniation, radiculopathy Requesting Physician: . Attending Physician: Kuldip Schofield 34-year-old gentleman seen in my office on January 02 for combination of low back pain and right leg radicular symptoms. He has continued to have leg radicular symptoms, this brought him to the emergency room for further evaluation and had an MRI. He notes pain radiating into the posterior aspect of the calf and into the foot, no other new changes since office visit. Examination reveals the patient to have intact strength in the right lower extremity EHL plantarflexion and ankle dorsiflexion, remainder of motor exam is unremarkable. He does have a positive straight leg raise on the right side, only limited low back pain on the left side. MR lumbar spine wo con 01/24/25 CLINICAL HISTORY: 34 years-old Male with right sided radicular SS. Acute low back pain with right lower extremity radicular symptoms COMPARISON: Radiographs dated 01/22/2025 FINDINGS: The lumbar alignment is normal. The vertebral body heights are normal. There is no T1 fracture line or marrow replacement process. The conus terminates at L1. The visualized spinal cord and cauda equina are normal. There is no paraspinal edema, mass, or prevertebral fluid collection. The intra-abdominal structures are grossly unremarkable. There is mild multilevel spondylitic spurring. Mild multilevel intervertebral disc space narrowing. Small annular disc bulging noted within the lower thoracic spine. T12-L1: No central canal or neural foraminal stenosis. L1-L2: Small posterior annular disc bulge, eccentric to the right neural foramen. No central canal or neural foraminal stenosis. L2-L3: No central canal or neural foraminal stenosis. L3-L4: No central canal or neural foraminal stenosis. L4-L5: 9 x 3 mm central disc protrusion, image 22 series 5. No central canal or neural foraminal stenosis. L5-S1: Mild intervertebral disc space narrowing and spondylotic spurring with small circumferential annular disc bulge. There is a posterior annular fissure with a large disc extrusion on image 28 series 5 measuring 2.5 x 0.7 cm with 5 mm caudal migration, image 9 series 2. This involves the central/right paracentral space, and right neural foramen. This abuts and posteriorly displac es the right S1 nerve root causing severe right lateral recess narrowing. Central canal and left neural foramen are patent. [id number] right neural foraminal narrowing. IMPRESSION: 1. Posterior annular fissure with large disc extrusion at L5-S1 abuts and posteriorly displaces the right S1 nerve root causing severe right lateral recess and [id number] right-sided neural foraminal narrowing at this level. 2. No additional significant central canal or neural foraminal stenosis. 3. No acute fracture or bone marrow edema. Review of lumbar MRI images from January 24, 2025, this my separate interpretation, this reveals the patient to have a broad-based central right disc protrusion with compression on the S1 nerve root. Small central protrusion at L4-5. Impression: L5-S1 right disc herniation with radiculopathy. Plan: Today I discussed the findings with the patient and discussed the treatment options for the patient. I related that he would be an appropriate candidate for a trial of epidural steroid injections which may be helpful in reducing the inflammation, but if this were to fail he would also be appropriate candidate for microdiscectomy. At this time the patient indicated he would prefer to avoid surgical intervention, he was interested in a pain management consult, he will most likely undergo this injection and we can follow-up afterwards to check on his progress. Allergies Allergy/AdvReac Type Severity Reaction Status Date / Time amoxicillin [From Augmentin] Allergy Mild Rash Verified 01/26/25 07:54 clavulanic acid Allergy Mild Rash Verified 01/26/25 07:54 [From Augmentin] gabapentin AdvReac Mild gave him Unverified 01/26/25 07:54 fever, body aches, and headache Home Medications Medication Instructions Recorded Confirmed Type multivitamin 1 tab PO HS 03/17/22 01/26/25 History cetirizine 10 mg tablet (Zyrtec) 10 mg PO HS 05/13/24 01/26/25 History fluticasone propionate 50 1 spray intranasal HS PRN Other 05/13/24 01/26/25 History mcg/actuation nasal spray,suspension oxycodone 5 mg tablet 5 mg PO Q6H PRN pain #15 tabs 01/22/25 01/26/25 Rx ibuprofen 800 mg tablet 800 mg PO Q8H PRN pain #30 tabs 01/25/25 01/26/25 Rx lidocaine 5 % topical patch 1 patch transdermal DAILY PRN low 01/25/25 01/26/25 Rx back pain #15 ea acetaminophen 500 mg tablet 1,000 mg PO TID PRN 01/26/25 01/26/25 History (Tylenol Extra Strength) dicyclomine 20 mg tablet 20 mg PO DAILY abdominal 01/26/25 01/26/25 History craming/diarrhea Past Med/Surg History Problem List Herniated lumbar intervertebral disc (Acute) Acute right lumbar radiculopathy (Acute) Herniation of intervertebral disc between L5 and S1 Acute lumbar radiculopathy (Acute) Low back pain radiating to right lower extremity History of lumbar laminectomy for spinal cord decompression L5-S1 Abdominal pain Melena Environmental and seasonal allergies S/P arthroscopy of right shoulder Encounter for pre-operative examination Labral tear of shoulder Medical History History of COVID-19 (2021) no hosp; resolved Hx of gastric ulcer ~2013 Blood in stool Environmental and seasonal allergies Nausea after anesthesia Surgical History History of arthroscopy of right shoulder repair labrum and bicep x2 S/P endoscopy Hx of colonoscopy Hx of wisdom tooth extraction History of ankle surgery lt. Family History Grandmother (Paternal) Breast cancer Grandfather (Maternal) History of open heart surgery Grandfather (Paternal) Kidney failure Mother Diabetes Father No problems noted. 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 Physical Exam . Results & Data Results & Data Laboratory Results . Diagnostic Findings . PG Care Time/CCT Total # of Minutes Spent Total Time Spent with Patient: Total time spent is greater than 50% in coordination of care (as documented) at patient's floor/unit and/or counseling patient: Coding Level of Care Code 08142 IN/OBS CONSULT LVL 3,45M
== END 2025-01-25 13:31 | disposition home or self-care (01) | DRG 552 ==
LOC: SUATTDRO → ED 08:48 → INTOOBSV 13:22 → 3N 13:22 → SUATTDRO 13:22 → 3N 15:40